=== PATIENT | male | born 1965 | race Caucasian/White ===

== ENCOUNTER 2016-11-10 09:35 | Day surgery (SDC) | payer BC ==
[2016-11-08 15:39] VITALS: BMI 28.7
[~2016-11-10 09:35] MED LIST: LACTATED RINGERS 1,000 ML IV SCH
[2016-11-10 10:15] VITALS: RESP 16; TEMP 96.6
[2016-11-10] MEDS ORDERED: PROPOFOL 10 MG/ML 20 ML VIAL IV ONE (10:49)
[2016-11-10 11:15] VITALS: BP 135/73
--- NOTE | 2016-11-10 11:23 | P.PCN ---
Date of Procedure: 11/10/16 Procedure(s) Performed: BRIEF HISTORY: Patient is a 50-year-old pleasant white male, scheduled for an elective colonoscopy as a part of screening for colorectal neoplasia. PROCEDURE PERFORMED: Colonoscopy. PREOPERATIVE DIAGNOSIS: Screening for colon cancer. IV sedation per Anesthesia. PROCEDURE: After informed consent was obtained, the patient, was brought into the endoscopy unit. IV conscious sedation was administered by Anesthesia under continuous monitoring. Digital rectal examination was normal. Initially the Olympus CF-160 flexible video colonoscope was then inserted in the rectum, gradually advanced into the cecum without any difficulty. Careful examination was performed as the scope was gradually being withdrawn. Ileocecal valve and the appendiceal orifice were visualized and appeared normal. Prep was fair.. Mucosa of the cecum, ascending colon, transverse colon, descending colon, sigmoid colon, and rectum appeared normal. Retroflexion was performed in the rectum and small internal hemorrhoids were seen. The patient tolerated the procedure well. IMPRESSION: Normal-appearing colon from rectum to cecum with no evidence of colorectal neoplasia . Small internal hemorrhoids. RECOMMENDATIONS: Findings of this examination were discussed with the patient as well as his family. He was advised to have a repeat screening colonoscopy in 10 years.
[2016-11-10 11:31] VITALS: PULSE 92
--- NOTE | 2016-11-15 16:53 | CDI ---
Dear Dr. Toledo, Your procedure note has IV CONSCIOUS SEDATION DOCUMENTED under the Prcedure and IV Sedation per Anesthesia documented in another spot. The anesthesia record, however, has GA/UNCONSCIOUS sedation documented. This is conflicting documentation that needs clarification for proper reporting purposes. Please clarify if the anesthesia provided Hadley [place] was conscious sedation or unconscious sedation. Please document this clarification as an addendum to your operative report. Thank you for your time, Jerri Calvillo,[facility] Outpatient [employer]
--- NOTE | 2016-11-20 09:38 | CDI ---
Dear Dr. Toledo On your operative report IV sedation per anesthesia is documented in one area and under procedure , IV Conscious sedation is documented. On the Anesthesia Record, however, GA/Unconscious sedation is documented. This conflicting documentation need clarification. Please clarify if the sedation provided Hadley [place] was Conscious or Unconscious sedation. Please document this clarification as an addendum to your operative report. Thank you for your time, Jerri Calvillo [facility] [employer] [email or web address]
== END 2016-11-10 11:58 | disposition home or self-care (01) ==
LOC: ORWHC2ENDO 09:35
PROVIDERS: ATTEND Internal Medicine Gastroenterology
DX: Z12.11 Encounter for screening for malignant neoplasm of colon (principal); K64.8 Other hemorrhoids; I10 Essential (primary) hypertension; E78.5 Hyperlipidemia, unspecified; Z79.899 Other long term (current) drug therapy; Z88.0 Allergy status to penicillin
CPT/HCPCS: J2704; G0121; 45378

== ENCOUNTER → 2019-07-23 | Outpatient (CLI) | payer OTHER ==
--- NOTE | 2019-07-23 15:16 | XR ---
EXAMINATION TYPE: XR chest 2V DATE OF EXAM: 07/23/2019 COMPARISON: NONE HISTORY: Clinical trial. Hypertension. Hyperlipidemia. Remote history of pneumonia. TECHNIQUE: Frontal and lateral views of the chest are obtained. FINDINGS: There is no focal air space opacity, pleural effusion, or pneumothorax seen. The cardiac silhouette size is within normal limits. The osseous structures are intact. Mild multilevel degener ative change of the spine. IMPRESSION: No acute cardiopulmonary process.
== END | disposition home or self-care (01) ==
LOC: RADXRMAIN 14:44
PROVIDERS: ATTEND Dermatology Procedural Dermatology
DX: Z00.6 Encounter for examination for normal comparison and control in clinical research program (principal)
CPT/HCPCS: 71046